=== PATIENT | female | born 1975 | race Two or more races ===

== ENCOUNTER → 2020-11-26 | Outpatient (CLI) | payer OTHER ==
[2020-11-26 16:49] LABS: BASOPHILS % (AUTO) 0 % (0-1); EOSINOPHILS % (AUTO) 2 % (1-7); LYMPHOCYTES % (AUTO) 33 % (22-44); MEAN CORPUSCULAR HEMOGLOBIN 32.8 pg (27.0-34.8); MEAN CORPUSCULAR HGB CONC 34.7 g/dL (32.4-35.8); MEAN PLATELET VOLUME 8.9 fL (7.4-10.4); MONOCYTES % (AUTO) 11 % (2-9); NEUTROPHILS % (AUTO) 54 % (42-75); PLATELET COUNT 318 x10^3/uL (130-400); RED BLOOD COUNT 4.11 x10^6/uL (3.82-5.3); RED CELL DISTRIBUTION WIDTH 12.9 % (9.6-15.2)
[2020-11-26 16:49] LABS: MICROSCOPIC NOT IND
[2020-11-26 16:51] LABS: MD NO
[2020-11-26 17:00] LABS: ALBUMIN 3.7 g/dL (3.4-5.0); ANION GAP 5 mmol/L (5-15); CALCIUM 8.5 mg/dL (8.5-10.1); CHLORIDE 109 mmol/L (98-107)
[2020-11-26 17:03] LABS: INTERNATIONAL NORMALIZED RATIO 0.96 (0.93-1.1); PROTHROMBIN TIME 10.3 Seconds (9.6-11.5)
[2020-11-26 17:06] LABS: ALANINE AMINOTRANSFERASE 29 U/L (12-78); ALKALINE PHOSPHATASE 72 U/L (45-117); BILIRUBIN,TOTAL 0.3 mg/dL (0.2-1.0); CREATININE 0.71 mg/dL (0.55-1.02); TOTAL PROTEIN 8.1 g/dL (6.4-8.2)
== END | disposition home or self-care (01) ==
LOC: STAR 16:08
PROVIDERS: ATTEND Obstetrics & Gynecology
DX: Z01.812 Encounter for preprocedural laboratory examination (principal); Z20.822 Contact with and (suspected) exposure to COVID-19; N92.0 Excessive and frequent menstruation with regular cycle; D25.9 Leiomyoma of uterus, unspecified
CPT/HCPCS: 36415; 80053; 81003; 84702; 85025; 85610; 85730; U0003; U0005

== ENCOUNTER 2020-12-02 05:26 | Day surgery (SDC) | payer OTHER ==
[~2020-12-02] VITALS: Ht 152.4 cm; Wt 63.5 kg
[2020-12-02 06:07] VITALS: BP 125/78
[2020-12-02] MEDS ORDERED: LACTATED RINGERS 1,000 ML IV SCH (06:30)
[2020-12-02] MEDS ORDERED: GABAPENTIN 300 MG CAPSULE PO ONE (06:30)
[2020-12-02] MEDS ORDERED: CHLORHEXIDINE 15 ML UDC PO ONE (06:30)
[2020-12-02] MEDS ORDERED: ACETAMINOPHEN 500 MG TABLET PO ONE (06:30)
[2020-12-02] MEDS ORDERED: FLUORESCEIN SODIUM 500 MG/5 ML ONE (06:53)
[2020-12-02] MEDS ORDERED: BUPIVACAINE/PF-EPI 0.25% 1:200K ONE (06:53)
[2020-12-02] MEDS ORDERED: BUPIVACAINE/PF 0.25% ONE ×2 (06:53→07:05)
[2020-12-02] MEDS ORDERED: EPINEPHRINE 1 MG/ML, 1ML ONE (07:05)
[2020-12-02] MEDS ORDERED: MIDAZOLAM 1 MG/ML, 2ML ONE (07:25)
[2020-12-02] MEDS ORDERED: FENTANYL PF 250 MCG/5ML ONE (07:26)
[2020-12-02] MEDS ORDERED: KETOROLAC 30 MG/1 ML ONE (07:35)
[2020-12-02] MEDS ORDERED: DEXAMETHASONE 4 MG/ML, 1ML ONE (07:35)
[2020-12-02] MEDS ORDERED: PROPOFOL 150 ML ONE (07:46)
[2020-12-02] MEDS ORDERED: PROMETHAZINE 25 MG/ML, 1ML IV PRN ×2 (08:30)
[2020-12-02] MEDS ORDERED: OXYcodone 5 MG/5 ML ORAL.SOL UDC PO PRN ×2 (08:30)
[2020-12-02] MEDS ORDERED: FENTANYL PF 100 MCG/2ML IV PRN (08:30)
[2020-12-02] MEDS ORDERED: hydrALAzine 20 MG/ML, 1ML IV PRN ×2 (08:30)
[2020-12-02] MEDS ORDERED: ALBUTEROL SULFATE 2.5 MG/3 ML NPPB PRN ×2 (08:30)
[2020-12-02] MEDS ORDERED: ACETAMINOPHEN 325 MG TABLET PO PRN ×2 (08:30)
[2020-12-02] MEDS ORDERED: LABETALOL 5MG/ML, 20ML IV PRN ×2 (08:30)
[2020-12-02] MEDS ORDERED: MEPERIDINE/PF 25MG/0.5ML IVPush PRN ×2 (08:30)
[2020-12-02] MEDS ORDERED: KETOROLAC 30 MG/1 ML IV PRN ×2 (08:30)
[2020-12-02] MEDS ORDERED: HYDROmorphone 2 MG/ML, 1ML IVPush PRN ×2 (08:30)
[2020-12-02] MEDS ORDERED: DIAZEPAM 5 MG/ML, 2ML IVPush PRN ×2 (08:30)
[2020-12-02] MEDS: FENTANYL PF 100 MCG/2ML IV PRN ×4 (09:40→10:45)
[2020-12-02] MEDS ORDERED: FENTANYL PF 100 MCG/2ML ONE ×2 (09:44→10:54)
[2020-12-02] MEDS ORDERED: NEOSTIGMINE 1 MG/ML, 10ML ONE (10:09)
[2020-12-02] MEDS ORDERED: ONDANSETRON 2MG/ML, 2ML ONE (10:09)
[2020-12-02] MEDS ORDERED: ROCURONIUM 10MG/ML,5ML ONE (10:09)
[2020-12-02] MEDS ORDERED: PROPOFOL 10 MG/ML, 20ML ONE (10:09)
[2020-12-02] MEDS ORDERED: SUCCINYLCHOLINE 20 MG/ML, 10ML ONE (10:09)
[2020-12-02] MEDS ORDERED: GLYCOPYRROLATE 0.2MG/1ML, 5ML ONE (10:09)
[2020-12-02] MEDS ORDERED: CEFAZOLIN 1,000 MG ONE (10:09)
[2020-12-02] MEDS ORDERED: OXYcodone 5 MG/5 ML ORAL.SOL UDC ONE (10:54)
[2020-12-02] MEDS ORDERED: ACETAMINOPHEN 650 MG/20.3 ML UDC ONE (10:54)
== END 2020-12-02 14:15 | disposition home or self-care (01) ==
LOC: OUT 05:26
PROVIDERS: ATTEND Obstetrics & Gynecology
DX: D25.2 Subserosal leiomyoma of uterus (principal); N92.0 Excessive and frequent menstruation with regular cycle; Z98.51 Tubal ligation status; Z82.49 Family history of ischemic heart disease and other diseases of the circulatory system; Z82.3 Family history of stroke
CPT/HCPCS: 36415; 58554; 81025; 85014; 85018; 88307; J0171; J0330; J0360; J0690; J1100; J1885; J2250; J2405; J2704; J2710; J3010; J7120